=== PATIENT | female | born 1985 | race Caucasian/White ===

== ENCOUNTER 2019-11-26 21:11 | Emergency (ER) | payer SELFPAY ==
[~2019-11-26] VITALS: Ht 172.7 cm; Wt 90.9 kg
[2019-11-26 21:14] VITALS: Ht 172.7 cm; Wt 90.9 kg
[2019-11-26] MEDS ORDERED: CATAPRES0.1 MG PO (21:16)
[2019-11-26 21:30] LABS: BASOPHILS 0.5 % (0-2); EOSINOPHILS 3.6 % (0-7); HEMATOCRIT 43.9 % (36.0-48.0); HEMOGLOBIN 14.1 g/dL (12-16); IMMATURE GRANULOCYTES 0.1 % (0-5); LYMPHOCYTES 32.7 % (15-50); MCHC 32.1 g/dL (31.0-37.0); MCV 87.1 fL (80.0-100.0); MEAN PLATELET VOLUME 9.8 fL (7.4-10.4); MONOCYTES 6.5 % (2-11); NEUTROPHILS 56.6 % (40-80); PLATELET COUNT 228 10x3/uL (130-400); RBC 5.04 10x6/uL (4.00-5.40); RDW 14.7 % (11.5-14.5); WBC 8.6 10x3/uL (4.8-10.8)
[2019-11-26 21:37] LABS: ANION GAP 12.6 mmol/L (8-16); CALCIUM 8.8 mg/dL (8.5-10.1); CARBON DIOXIDE 27.9 mmol/L (21.0-32.0); POTASSIUM - SERUM 3.5 mmol/L (3.5-5.1)
--- NOTE | 2019-11-26 21:42 | NUR ---
PATIENT IN ER, SHE IS HERE FOR HIGH BLOOD PRESSURE, SHE ATTEMPTED SUICIDE TWICE IN THE PAST. SHE IS NOT SUICIDIAL AT THIS TIME. 1-800 NUMBER GIVEN TO HER. SIGNIFICANT OTHER AT BEDSIDE.
[2019-11-26 21:43] LABS: ALBUMIN 3.5 g/dL (3.4-5.0); BILIRUBIN - TOTAL 0.18 mg/dL (0.2-1.3); PROTEIN - SERUM 6.9 g/dL (6.4-8.2)
[2019-11-26 22:03] LABS: BILIRUBIN NEGATIVE (NEGATIVE); GLUCOSE NEGATIVE (NEGATIVE); KETONE NEGATIVE (NEGATIVE); NITRITE NEGATIVE (NEGATIVE); UROBILINOGEN NORMAL (NORMAL)
[2019-11-26 23:28] VITALS: BP 125/78
== END 2019-11-27 | disposition home or self-care (01) ==
LOC: D.ER 21:11
PROVIDERS: Family Medicine
DX: I10 Essential (primary) hypertension (principal); Z72.0 Tobacco use